=== PATIENT | male | born 1970 | race Two or more races ===

== ENCOUNTER 2019-09-21 17:17 | Emergency (ER) | payer MEDICAID, OTHER ==
[~2019-09-21] VITALS: Ht 182.9 cm; Wt 98.9 kg
[2019-09-21] MEDS ORDERED: IBUPROFEN 800 MG TAB PO ONE (19:00)
[2019-09-21 19:19] VITALS: BP 140/88
== END 2019-09-21 19:19 | disposition home or self-care (01) ==
LOC: ER 17:17
DX: S93.402A Sprain of unspecified ligament of left ankle, initial encounter (principal); W22.8XXA Striking against or struck by other objects, initial encounter; Y93.67 Activity, basketball; Y92.89 Other specified places as the place of occurrence of the external cause; Y99.8 Other external cause status
CPT/HCPCS: 73610